=== PATIENT | male | born 1980 | race African-American/Black ===

== ENCOUNTER 2022-02-10 03:06 | Emergency (ER) | payer OTHER ==
[2022-02-10 03:27] VITALS: BP 127/82; PULSE 78; TEMP 98; BMI 25.7
[2022-02-10] MEDS ORDERED: MELATONIN 5 MG TABLETS PO ONE (04:45)
== END 2022-02-10 05:12 | disposition home or self-care (01) ==
LOC: JER 03:06
DX: G47.00 Insomnia, unspecified (principal)
CPT/HCPCS: 99283-25